=== PATIENT | female | born 1995 | race Caucasian/White ===

== ENCOUNTER 2022-08-18 01:10 | Emergency (ER) | payer MEDICAID, OTHER ==
[~2022-08-18] VITALS: Ht 170 cm; Wt 100.9 kg
[2022-08-18 01:21] VITALS: BP 152/95
[2022-08-18] MEDS ORDERED: AMOX1TAB12 (01:25)
[2022-08-18] MEDS ORDERED: FLUT16SP22 (01:25)
[2022-08-18] MEDS ORDERED: FLUC150T41 (01:25)
[2022-08-18] MEDS ORDERED: diphenhydrAMINE 50 MG/ML INJ (BENADRYL) IM ONE (01:30)
[2022-08-18] MEDS ORDERED: FAMOTIDINE 20 MG (PEPCID) TABLET PO ONE (01:30)
--- NOTE | 2022-08-18 01:36 | ED General ---
General Chief Complaint: Allergic Reaction Stated Complaint: HIVES/SORE THROAT Nursing Triage Note: patient reports since 2099 last night she has developed hives on her neck, groin, abdominal area. patient states also has a "lump" in her throat that makes it hard to swallow. patient states she has taken four doses of Agumentin for sinus infection. Source of Information: Patient Exam Limitations: No Limitations History of Present Illness Date Seen by Provider: Aug 18, 2022 Time Seen by Provider: 01:13 Initial Comments 27-year-old female with no pertinent past medical history coming in due to concerns for his allergic reaction. She had been sick with a URI for roughly 2 weeks, and on Wednesday developed some sinus pressure. Went to the clinic was diagnosed with a sinus infection. Started on Augmentin that day. Took her most recent dose 4-1/2 hours ago. Roughly 30 minutes after that, she developed hives that were very itchy all over her body. She does feel a "lump" in her throat makes it hard to swallow. Denies any difficulty breathing, speaking, vomiting, abdominal pain, chest pain, shortness of breath, wheezing, fever, chills, or any other concerns. This is never happened before. She did take a Claritin shortly after she had symptoms. Allergies and Home Medications Allergies Coded Allergies: amoxicillin (Unverified Adverse Reaction, Unknown, hives, 08/18/22) Patient Home Medication List Home Medication List Reviewed: Yes Amoxicillin/Potassium Clav (Amox Tr-K Clv 875-125 mg Tab) 875 Mg-125 Mg Tablet, (Reported) Entered as Reported by: GERI SANDOVAL on 08/18/22124 Last Action: New Order Fluconazole (Fluconazole) 150 Mg Tablet, (Reported) Entered as Reported by: GERI SANDOVAL on 08/18/22124 Last Action: New Order Fluticasone Propionate (Fluticasone Propionate) 50 Mcg/Actuation [place].susp, (Reported) Entered as Reported by: GERI SANDOVAL on 08/18/22124 Last Action: New Order Review of Systems Review of Systems Constitutional: No fever EENTM: throat pain; No nose congestion Respiratory: no symptoms reported Cardiovascular: no symptoms reported Gastrointestinal: no symptoms reported Genitourinary: no symptoms reported Musculoskeletal: no symptoms reported Skin: rash Psychiatric/Neurological: No Symptoms Reported Hematologic/Lymphatic: No Symptoms Reported Immunological/Allergic: no symptoms reported All Other Systems Reviewed Negative Unless Noted: Yes Past Iqdnwjz-Nqwxyv-Xaarif Hx Patient Social History Tobacco Use?: No Past Medical History Surgeries: No Physical Exam Vital Signs Vital Signs - First Documented 08/18/22 01:21 Temp 36.5 Pulse 88 Resp 20 B/P (MAP) 152/95 (114) Pulse Ox 97 O2 Delivery Room Air Capillary Refill : Less Than 3 Seconds Height, Weight, BMI Height: '" Weight: lbs. oz. kg; 34.00 BMI Method: General Appearance: No Apparent Distress, WD/WN Eyes: Bilateral Eye Normal Inspection HEENT: PERRL/EOMI, TMs Normal, Normal ENT Inspection, Pharynx Normal Neck: Full Range of Motion, Normal Inspection, Non Tender, Supple Respiratory: Chest Non Tender, Lungs Clear, Normal Breath Sounds, No Accessory Muscle Use, No Respiratory Distress Cardiovascular: Regular Rate, Rhythm, No Edema, Normal Peripheral Pulses Gastrointestinal: Normal Bowel Sounds, Non Tender, Soft; No Distended, No Guarding Back: Normal Inspection, No CVA Tenderness Extremity: Normal Capillary Refill, Normal Inspection, Normal Range of Motion, Non Tender, No Calf Tenderness, No Pedal Edema Neurologic/Psychiatric: Alert, No Motor/Sensory Deficits, Normal Mood/Affect Skin: Normal Color, Warm/Dry, Rash (Scattered urticaria) Lymphatic: No Adenopathy Progress/Results/Core Measures Suspected Sepsis SIRS Temperature: Pulse: 88 Respiratory Rate: 20 Blood Pressure 152 /95 Mean: 114 Results/Orders My Orders Orders - MAHAD HILL MD Dexamethasone Injection (Decadron Inje (08/18/22 01:30) Diphenhydramine Injection (Benadryl Inje (08/18/22 01:30) Famotidine Tablet (Pepcid Tablet) (08/18/22 01:30) Medications Given in ED Current Medications Medications Dose Ordered Sig/Prem Route Start Time Stop Time Status Last Admin Dose Admin Dexamethasone Sodium Phosphate 10 mg ONCE ONCE IM 08/18/22 01:30 08/18/22 01:32 DC 08/18/22 01:39 10 MG Diphenhydramine HCl 50 mg ONCE ONCE IM 08/18/22 01:30 08/18/22 01:32 DC 08/18/22 01:39 50 MG Famotidine 40 mg ONCE ONCE PO 08/18/22 01:30 08/18/22 01:32 DC 08/18/22 01:38 40 MG Vital Signs/I&O 08/18/22 01:21 Temp 36.5 Pulse 88 Resp 20 B/P (MAP) 152/95 (114) Pulse Ox 97 O2 Delivery Room Air Capillary Refill : Less Than 3 Seconds Blood Pressure Mean: 114 Progress Note : Progress Note 27-year-old female with above history coming in due to hives after taking Augmentin. ABCs were intact and vitals were stable on presentation. No other clinical signs of anaphylaxis. she does not seem to have any respiratory complaints and has clear lung lomax. She was given Benadryl, Pepcid, and Decadron with near complete resolution of her symptoms. I believe she is stable for discharge with outpatient follow-up. She was sent home with strict return precautions. Departure Impression Primary Impression: Hives Additional Impression: Allergic reaction Qualified Codes: T78.40XA - Allergy, unspecified, initial encounter Disposition: HOME, SELF-CARE Condition: Improved Departure-Patient Inst. Decision time for Depature: 02:02 Referrals: MINDY CLEMENS MD (PCP/Family) Primary Care Physician Patient Instructions: Allergic Reaction ED Add. Discharge Instructions: You are allergic to the Augmentin. Continue to take the Claritin every day for the next several days. If you develop hives again, you can buy [id number] Pepcid or famotidine and take 40 mg of that. If you start wheezing, become very short of breath, or have any concerns that are severe, and then please come back to the ER. We will send an EpiPen prescription to your pharmacy for you to fill. If you develop the wheezing with shortness of breath, I want you to use the EpiPen before you come to the ER. Scripts Epinephrine (Epipen 2-Frandy) 0.3 Mg/0.3 Ml Auto.injct 0.3 MG IJ Q15M PRN for anaphylaxis for 1 Day, #1 EA Prov: MAHAD HILL MD 08/18/22 Work/School Note: Work Release Form Date Seen in the Emergency Department: Aug 18, 2022 Return to Work: Aug 19, 2022 Restrictions: No Restrictions MAHAD HILL MD Aug 18, 2022 01:36
[2022-08-18] MEDS ORDERED: EPIN0.3P3 IJ (02:03)
== END 2022-08-18 02:07 | disposition home or self-care (01) ==
LOC: ER FS 01:16
DX: L50.0 Allergic urticaria (principal); T36.0X5A Adverse effect of penicillins, initial encounter; Z28.310 Unvaccinated for COVID-19
CPT/HCPCS: 99284